=== PATIENT | male | born 1990 | race African-American/Black ===

== ENCOUNTER 2022-02-21 02:37 | Emergency (ER) | payer OTHER ==
[~2022-02-21] VITALS: Ht 188 cm; Wt 108.9 kg
[2022-02-21 02:44] VITALS: BP 140/77
--- NOTE | 2022-02-21 03:59 | NUR ---
Patient discharged to home in stable condition. Written and verbal after care instructions given. Patient verbalizes understanding of instruction.
== END 2022-02-21 04:00 | disposition home or self-care (01) ==
LOC: ER 02:46
DX: R05.9 Cough, unspecified (principal); Z20.822 Contact with and (suspected) exposure to COVID-19; R03.0 Elevated blood-pressure reading, without diagnosis of hypertension
CPT/HCPCS: 87426; 99283; C9803